=== PATIENT | female | born 1950 | race Caucasian/White ===

== ENCOUNTER 2017-06-21 06:45 | Emergency (ER) | payer MEDICARE ==
[2017-06-21] MEDS ORDERED: Lorazepam 2 MG/ML VIAL ONE (07:26)
[2017-06-21] MEDS ORDERED: Sodium Chloride 0.9% 1,000 ML BAG ONE (07:36)
[2017-06-21 07:57] LABS: ALT (SGPT) 124 U/L (8-55); AST (SGOT) 30 U/L (5-34); Albumin 3.7 g/dL (3.4-4.8); Alkaline Phosphatase 217 U/L (40-150); Anion Gap 17 mmol/L (10-20); BUN (Urea Nitrogen) 20 mg/dL (9.8-20.1); Bilirubin, Total 0.7 mg/dL (0.2-1.2); Calc. Creatinine Clearance 0 mL/min (70-130); Calcium 8.3 mg/dL (7.8-10.44); Carbon Dioxide 23 mmol/L (23-31); Chloride 107 mmol/L (98-107); Estimated GFR-MDRD 55; Globulin 3.1 g/dL (2.4-3.5); Glucose 125 mg/dL (80-115); Potassium 3.9 mmol/L (3.5-5.1); Protein, Total 6.8 g/dL (6.0-8.3); Sodium 143 mmol/L (136-145)
[2017-06-21 07:58] LABS: CKMB 2.1 ng/mL (0-6.6)
[2017-06-21 08:04] LABS: #Basophils 0.3 thou/uL (0.0-0.2); #Eosinphils 0.1 thou/uL (0.0-0.7); #Lymphocytes 0.5 thou/uL (1.20-3.40); #Monocytes 0.3 thou/uL (0.11-0.59); #Neutrophils 18.4 thou/uL (1.40-6.50); %Basophils 1.3 % (0.0-1.0); %Eosinophils 0.6 % (0.0-10.0); %Lymphocytes 2.8 % (21.0-51.0); %Monocytes 1.4 % (0.0-10.0); Mean Corpuscular HGB CONC 29.3 g/dL (32.0-36.0); Mean Corpuscular Hemoglobin 27.3 pg (27.0-31.0); Mean Corpuscular Volume 93.2 fl (81.0-99.0); Platelet Count 877 thou/uL (130-400); RBC Distribution Width 20.7 % (11.5-14.5); White Blood Cell (WBC) Count 19.5 thou/uL (4.8-10.8)
[2017-06-21] MEDS ORDERED: methylPREDNISolone Sod Succ/PF 125 MG/2 ML VIAL ONE (08:19)
[2017-06-21 08:24] LABS: PLT Morphology Comment Appears Increased
[2017-06-21 08:32] LABS: Troponin I 0.031 ng/mL (< 0.028)
[2017-06-21] MEDS ORDERED: Ipratropium Bromide 2.5 ml Neb ONE (08:39)
[2017-06-21] MEDS ORDERED: Albuterol Sulfate 1.25 MG/3 ML NEB ONE (08:39)
[2017-06-21] MEDS ORDERED: Albuterol Sulfate 2.5 mg/3 ml Neb ONE (08:41)
[2017-06-21 08:49] LABS: PTT 34.2 SEC (22.9-36.1); Prothrombin Time 13.3 SEC (12.0-14.7)
--- NOTE | 2017-06-21 09:28 | RAD ---
PORTABLE CHEST: Date: 06-21-17 Provided Clinical History: Dyspnea. FINDINGS: No comparisons. The exam is limited by patient body habitus. The cardiac silhouette appears enlarged. Pleural and/or parenchymal opacity at the left lung base cannot be excluded. Prominence of the pulmonary vasculature and pulmonary interstitium are noted, suggesting congestive failure. No evidence for pneumothorax. IMPRESSION: Limited study related to patient body habitus with findings suggesting congestive failure. Follow up is recommended. POS: [facility]
== END 2017-06-21 12:00 | disposition short-term general hospital (02) ==
LOC: MADERS 06:45
DX: J18.9 Pneumonia, unspecified organism (principal); R06.03 Acute respiratory distress; R09.02 Hypoxemia; Y95 Nosocomial condition; I10 Essential (primary) hypertension; I25.2 Old myocardial infarction; R79.89 Other specified abnormal findings of blood chemistry
CPT/HCPCS: 36415; 71045; 80053; 82553; 83880; 84484; 85025; 85610; 85730; 87040; 93005; 94644; 94760; 96365; 96375; J1956; J2060; J2930; J3370; J7050; J7611; J7620; J7644

== ENCOUNTER 2017-12-26 13:02 | Emergency (ER) | payer MEDICARE ==
[2017-12-26 13:32] LABS: INR-International Normal Ratio 1.1; PTT 37.1 SEC (22.9-36.1); Prothrombin Time 14.2 SEC (12.0-14.7)
[2017-12-26 13:41] LABS: Hemoglobin 13.7 g/dL (12.0-16.0); Lymphocytes 6 % (21-51); MDiff Complete? YES; Mean Corpuscular HGB CONC 31.5 g/dL (32.0-36.0); Mean Corpuscular Hemoglobin 30.1 pg (27.0-31.0); Mean Corpuscular Volume 95.5 fL (78.0-98.0); Mean Platelet Volume 7.6 fL (7.4-10.4); Monocytes 4 % (0-10); Neutrophil 90 % (42-75); PLT Morphology Comment Appears Increased; Platelet Count 573 thou/uL (130-400); RBC Distribution Width 18.9 % (11.5-14.5); RBC Morphology Normal; Red Blood Cell (RBC) Count 4.55 mill/uL (4.20-5.40); White Blood Cell (WBC) Count 9.3 thou/uL (4.8-10.8)
[2017-12-26 13:43] LABS: ALT (SGPT) 10 U/L (8-55); AST (SGOT) 18 U/L (5-34); Albumin 3.7 g/dL (3.4-4.8); Alkaline Phosphatase 63 U/L (40-150); Anion Gap 15 mmol/L (10-20); BUN (Urea Nitrogen) 22 mg/dL (9.8-20.1); Bilirubin, Total 0.9 mg/dL (0.2-1.2); Calc. Creatinine Clearance 0 mL/min (70-130); Calcium 9.2 mg/dL (7.8-10.44); Carbon Dioxide 25 mmol/L (23-31); Chloride 105 mmol/L (98-107); Estimated GFR-MDRD 68; Globulin 3.1 g/dL (2.4-3.5); Glucose 78 mg/dL (80-115); Magnesium 2.5 mg/dL (1.6-2.6); Potassium 4.6 mmol/L (3.5-5.1); Protein, Total 6.8 g/dL (6.0-8.3); Sodium 140 mmol/L (136-145)
[2017-12-26 13:45] LABS: CKMB 1.6 ng/mL (0-6.6); Troponin I 0.036 ng/mL (< 0.028)
--- NOTE | 2017-12-26 14:09 | RAD ---
CHEST ONE VIEW: History: Dyspnea. Comparison: 06-21-17 FINDINGS: Heart size is enlarged. Pulmonary arteries appears to be markedly enlarged. Mild edema. No pneumothor ax. IMPRESSION: Findings suggesting congestive heart failure as well as pulmonary hypertension. POS: [facility]
[2017-12-26] MEDS ORDERED: Furosemide 40 MG/4 ML VIAL ONE (14:26)
[2017-12-26] MEDS ORDERED: Morphine 4 MG/ML VIAL ONE (17:16)
== END 2017-12-26 18:20 | disposition short-term general hospital (02) ==
LOC: MADERS 13:02
DX: I11.0 Hypertensive heart disease with heart failure (principal); I50.9 Heart failure, unspecified; E87.70 Fluid overload, unspecified; R51 Headache; R79.89 Other specified abnormal findings of blood chemistry; I25.2 Old myocardial infarction; Z79.899 Other long term (current) drug therapy
CPT/HCPCS: 71045; 80053; 82553; 83735; 83880; 84443; 84484; 85025; 85379; 85610; 85730; 93005; 96374; 96375; J1940; J2270

== ENCOUNTER 2018-04-09 11:08 | Emergency (ER) | payer MEDICARE ==
[2018-04-09 11:51] LABS: #Basophils 0.1 thou/uL (0.0-0.2); #Eosinphils 0.2 thou/uL (0.0-0.7); #Lymphocytes 0.5 thou/uL (1.20-3.40); #Monocytes 0.2 thou/uL (0.11-0.59); #Neutrophils 7.4 thou/uL (1.40-6.50); %Basophils 0.9 % (0.0-1.0); %Eosinophils 2.1 % (0.0-10.0); %Lymphocytes 5.8 % (21.0-51.0); %Monocytes 2.6 % (0.0-10.0); %Neutrophils 88.6 % (42.0-75.0); Hemoglobin 14.1 g/dL (12.0-16.0); Mean Corpuscular HGB CONC 30.3 g/dL (32.0-36.0); Mean Corpuscular Hemoglobin 29.2 pg (27.0-31.0); Mean Corpuscular Volume 96.7 fL (78.0-98.0); Mean Platelet Volume 7.3 fL (7.4-10.4); Platelet Count 551 thou/uL (130-400); RBC Distribution Width 18.2 % (11.5-14.5); White Blood Cell (WBC) Count 8.4 thou/uL (4.8-10.8)
[2018-04-09 12:07] LABS: ALT (SGPT) 13 U/L (8-55); AST (SGOT) 17 U/L (5-34); Alkaline Phosphatase 75 U/L (40-150); Anion Gap 13 mmol/L (10-20); BUN (Urea Nitrogen) 30 mg/dL (9.8-20.1); Bilirubin, Total 0.9 mg/dL (0.2-1.2); Calc. Creatinine Clearance 0 mL/min (70-130); Calcium 9.2 mg/dL (7.8-10.44); Carbon Dioxide 24 mmol/L (23-31); Chloride 108 mmol/L (98-107); Estimated GFR-MDRD 52; Globulin 3.2 g/dL (2.4-3.5); Glucose 98 mg/dL (80-115); Potassium 4.9 mmol/L (3.5-5.1); Protein, Total 7.2 g/dL (6.0-8.3); Sodium 140 mmol/L (136-145)
[2018-04-09 12:43] LABS: Bilirubin Negative (Negative); Blood, Urine Negative (Negative); Clarity Clear (Clear); Glucose, Urine (Dipstick) Negative (Negative); Leukocyte Negative (Negative); Nitrite Negative (Negative); Protein, Urine (Dipstick) Negative (Neg-Trace); Urobilinogen 0.2 mg/dL (0.2-1.0); pH, Urine 5.5 (5.0-9.0)
== END 2018-04-09 13:56 | disposition home or self-care (01) ==
LOC: MADERS 11:08
DX: D45 Polycythemia vera (principal); R00.1 Bradycardia, unspecified; R53.1 Weakness; I25.2 Old myocardial infarction; I11.0 Hypertensive heart disease with heart failure; I50.9 Heart failure, unspecified; E03.9 Hypothyroidism, unspecified; Z86.73 Personal history of transient ischemic attack (TIA), and cerebral infarction without residual deficits; Z79.899 Other long term (current) drug therapy
CPT/HCPCS: 36415; 80053; 81003; 85025; 93005

== ENCOUNTER 2018-05-29 11:43 | Emergency (ER) | payer MEDICARE ==
--- NOTE | 2018-05-29 12:44 | RAD ---
PORTABLE CHEST 1 VIEW: Date: 05/29/18 Time: 1224 hours HISTORY: Dyspnea FINDINGS: Comparison made with exam of 05/10/18. The heart is enlarged. There is continued prominence of the pulmonary artery, suspicious for pulmonar y arterial hypertension. There is mild pulmonary vascular congestion. No pneumothoraces or large effu sions are seen. POS: [facility]
[2018-05-29 12:50] LABS: ALT (SGPT) 79 U/L (8-55); AST (SGOT) 46 U/L (5-34); Albumin 3.9 g/dL (3.4-4.8); Alkaline Phosphatase 149 U/L (40-150); Anion Gap 13 mmol/L (10-20); BUN (Urea Nitrogen) 43 mg/dL (9.8-20.1); Bilirubin, Total 0.8 mg/dL (0.2-1.2); Calc. Creatinine Clearance 0 mL/min (70-130); Calcium 8.7 mg/dL (7.8-10.44); Carbon Dioxide 28 mmol/L (23-31); Chloride 107 mmol/L (98-107); Estimated GFR-MDRD 47; Globulin 3.1 g/dL (2.4-3.5); Glucose 140 mg/dL (80-115); Potassium 4.7 mmol/L (3.5-5.1); Sodium 143 mmol/L (136-145)
[2018-05-29 13:00] LABS: Eosinophils 1 % (0-10); Hemoglobin 12.5 g/dL (12.0-16.0); Lymphocytes 2 % (21-51); MDiff Complete? YES; Mean Corpuscular HGB CONC 30.9 g/dL (32.0-36.0); Mean Corpuscular Hemoglobin 29.8 pg (27.0-31.0); Mean Corpuscular Volume 96.5 fL (78.0-98.0); Mean Platelet Volume 6.9 fL (7.4-10.4); Monocytes 1 % (0-10); Myelocyte 1 % (0-0); Neutrophil 93 % (42-75); PLT Morphology Comment Appears Increased; Platelet Count 647 thou/uL (130-400); RBC Distribution Width 17.8 % (11.5-14.5); RBC Morphology Normal; Reactive Lymphocytes 2 % (0-10); White Blood Cell (WBC) Count 9.1 thou/uL (4.8-10.8)
[2018-05-29 13:07] LABS: CKMB 1.6 ng/mL (0-6.6)
[2018-05-29] MEDS ORDERED: Albuterol Sulfate 2.5 mg/0.5 ml Neb ONE (13:11)
[2018-05-29] MEDS ORDERED: Furosemide 40 MG/4 ML VIAL ONE (13:12)
[2018-05-29] MEDS ORDERED: Nitroglycerin 2% Ointment 1 INCH/1 GM Packet ONE (13:12)
== END 2018-05-29 14:41 | disposition short-term general hospital (02) ==
LOC: MADERS 11:43
DX: I11.0 Hypertensive heart disease with heart failure (principal); I50.9 Heart failure, unspecified; R79.89 Other specified abnormal findings of blood chemistry; J06.9 Acute upper respiratory infection, unspecified; I25.2 Old myocardial infarction; E03.9 Hypothyroidism, unspecified; Z86.73 Personal history of transient ischemic attack (TIA), and cerebral infarction without residual deficits; Z79.899 Other long term (current) drug therapy
CPT/HCPCS: 36415; 71045; 80053; 82553; 83880; 84484; 85025; 87804; 93005; 96374; J1940; J7611; J7620

== ENCOUNTER 2018-06-10 12:54 | Emergency (ER) | payer MEDICARE ==
[2018-06-10] MEDS ORDERED: predniSONE 20 MG TAB ONE (13:16)
[2018-06-10] MEDS ORDERED: Ketorolac Tromethamine 30 MG/ML VIAL ONE (13:16)
== END 2018-06-10 13:36 | disposition home or self-care (01) ==
LOC: MADERS 12:54
DX: M10.9 Gout, unspecified (principal); E03.9 Hypothyroidism, unspecified; I25.2 Old myocardial infarction; I10 Essential (primary) hypertension; Z79.899 Other long term (current) drug therapy
CPT/HCPCS: 96372; J1885; J7506

== ENCOUNTER 2018-12-03 09:01 | Emergency (ER) | payer MEDICARE ==
[~2018-12-03 09:01] MED LIST: Iopamidol 370 76% 100 ML VIAL ONE
--- NOTE | 2018-12-03 09:43 | RAD ---
EXAM: Chest one view: HISTORY: Dyspnea COMPARISON: 08/05/2018 FINDINGS: Enlarged proximal pulmonary artery segments bilaterally. Bilateral vascular congestion. Heart size: Enlarged Lungs: No confluent pneumonia. No significant pleural effusion. IMPRESSION: Cardiomegaly with bilateral vascular congestion. Large proximal pulmonary artery segments. Little change from prior study.
[2018-12-03 09:56] LABS: #Eosinphils 0.1 thou/uL (0.0-0.7); #Lymphocytes 0.3 thou/uL (1.20-3.40); #Monocytes 0.1 thou/uL (0.11-0.59); #Neutrophils 5.5 thou/uL (1.40-6.50); %Basophils 0.3 % (0.0-1.0); %Eosinophils 1.3 % (0.0-10.0); %Lymphocytes 4.9 % (21.0-51.0); %Monocytes 1.4 % (0.0-10.0); Mean Corpuscular HGB CONC 30.3 g/dL (32.0-36.0); Mean Corpuscular Volume 108.9 fL (78.0-98.0); Mean Platelet Volume 6.3 fL (7.4-10.4); Platelet Count 477 thou/uL (130-400); RBC Distribution Width 19.4 % (11.5-14.5); Red Blood Cell (RBC) Count 3.04 mill/uL (4.20-5.40)
[2018-12-03 10:08] LABS: ALT (SGPT) 8 U/L (8-55); AST (SGOT) 12 U/L (5-34); Albumin 3.6 g/dL (3.4-4.8); Alkaline Phosphatase 75 U/L (40-150); Anion Gap 14 mmol/L (10-20); BUN (Urea Nitrogen) 32 mg/dL (9.8-20.1); Bilirubin, Total 0.7 mg/dL (0.2-1.2); Calc. Creatinine Clearance 0 mL/min (70-130); Calcium 8.3 mg/dL (7.8-10.44); Carbon Dioxide 31 mmol/L (23-31); Chloride 104 mmol/L (98-107); Estimated GFR-MDRD 45; Globulin 2.9 g/dL (2.4-3.5); Glucose 98 mg/dL (80-115); Potassium 3.9 mmol/L (3.5-5.1); Protein, Total 6.5 g/dL (6.0-8.3); Sodium 145 mmol/L (136-145)
[2018-12-03 10:16] LABS: INR-International Normal Ratio 1.1; Prothrombin Time 14.5 SEC (12.0-14.7)
[2018-12-03 10:28] LABS: CKMB 1.3 ng/mL (0-6.6)
[2018-12-03 10:38] LABS: Manual Diff?? YES
[2018-12-03 10:39] LABS: Anisocytosis SLIGHT = 6-15 cells (100X) (0-5/hpf); Band 2 % (5-11); Lymphocytes 7 % (21-51); Macrocytosis SLIGHT = 6-15 cells (100X) (0-5/hpf); Monocytes 2 % (0-10); Platelet Morphology Comment Appears Adequate
[2018-12-03] MEDS ORDERED: Aspirin Chewable 81 MG TAB ONE (11:32)
[2018-12-03] MEDS ORDERED: Furosemide 40 MG/4 ML VIAL ONE (11:32)
--- NOTE | 2018-12-03 11:33 | CT ---
CT ABDOMEN AND PELVIS WITH IV CONTRAST: Date: 12/03/18 INDICATION: History of abdominal pain. COMPARISON: Prior exam dated 12/27/17. FINDINGS: Hepatosplenomegaly persists. There is mild bibasilar atelectasis. Gallbladder is surgically absent. The pancreas, adrenal glands, and retroperitoneum are unchanged. Bilateral renal cysts persist. Mild amount of retained stool within the colon. There is normal appendix in the right lower quadrant. Uterus is surgically absent. There is scattered colonic diverticulosis. Compression abnormalities of L2 and L3 are stable. Compression abnormality of T11 and T9 are stable. IMPRESSION: 1. No acute abnormality demonstrated. 2. Bibasilar atelectasis. 3. Stable hepatosplenomegaly. 4. Cholecystectomy. 5. Stable bilateral renal cysts. 6. Colonic diverticulosis. 7. Stable compression abnormalities involving T9, T11, L2, and L3. 8. Visualized aspects of the rectum appear within normal limits. The lack of intraluminal contrast s lightly limits image detail. POS: [facility]
== END 2018-12-03 13:05 | disposition short-term general hospital (02) ==
LOC: MADERS 09:01
DX: K92.2 Gastrointestinal hemorrhage, unspecified (principal); I11.0 Hypertensive heart disease with heart failure; I50.9 Heart failure, unspecified; I25.2 Old myocardial infarction; E03.9 Hypothyroidism, unspecified; D75.1 Secondary polycythemia; Z86.73 Personal history of transient ischemic attack (TIA), and cerebral infarction without residual deficits; Z79.899 Other long term (current) drug therapy
CPT/HCPCS: 71045; 74177; 80053; 82553; 83605; 83880; 84484; 85025; 85610; 85730; 86900; 86901; 93005; 96374; J1940; Q9967